=== PATIENT | female | born 1995 | race Caucasian/White ===

== ENCOUNTER 2017-12-20 17:30 | Emergency (ER) | payer SELFPAY ==
[2017-12-20] MEDS ORDERED: Lidocaine 1% 20 ML MDV ONE (17:44)
[2017-12-20] MEDS ORDERED: Acetaminophen 500 MG TAB ONE (17:49)
[2017-12-20] MEDS ORDERED: Sulfameth/Trimethoprim DS 800-160mg TAB ONE (18:04)
[2017-12-20] MEDS ORDERED: Cephalexin 250 MG CAP ONE (18:04)
== END 2017-12-20 18:41 | disposition home or self-care (01) ==
LOC: NAV ERS 17:30
DX: L08.9 Local infection of the skin and subcutaneous tissue, unspecified (principal)
CPT/HCPCS: 10060; 87070; 87077; 87186; 87205; J2001